=== PATIENT | male | born 1980 | race Caucasian/White ===

== ENCOUNTER 2019-02-16 14:46 | Emergency (ER) | payer MEDICARE, OTHER ==
[~2019-02-16] VITALS: Ht 177.8 cm; Wt 86.2 kg
[2019-02-16] MEDS ORDERED: CHLO10 PO (15:07)
[2019-02-16] MEDS ORDERED: FOLI1 PO (15:07)
[2019-02-16] MEDS ORDERED: CARV6.25 PO (15:07)
[2019-02-16] MEDS ORDERED: Thiamine HCl100 MG PO (15:08)
[2019-02-16] MEDS ORDERED: LOSA25 PO (15:08)
[2019-02-16] MEDS ORDERED: SIMV10 PO (15:08)
[2019-02-16] MEDS ORDERED: THERA1 EACH PO (15:22)
[2019-02-16] MEDS ORDERED: GABA300 PO (15:22)
[2019-02-16 15:29] LABS: BASOPHILS ABSOLUTE AUTO 0.08 K/mm3 (0.00-0.23); BASOPHILS PERCENT AUTO 1 % (0-2); EOSINOPHILS ABSOLUTE AUTO 0.18 K/mm3 (0.00-0.68); EOSINOPHILS PERCENT AUTO 1 % (0-6); Hematocrit 38.4 % (37.0-53.0); Hemoglobin 13.4 g/dL (13.5-17.5); IMMATURE GRAN ABSOLUTE AUTO 0.08 K/mm3 (0.00-0.10); IMMATURE GRAN PERCENT AUTO 1 % (0-1); LYMPHOCYTES ABSOLUTE AUTO 1.76 K/mm3 (0.84-5.20); LYMPHOCYTES PERCENT AUTO 11 % (21-46); MONOCYTES ABSOLUTE AUTO 1.24 K/mm3 (0.16-1.47); MONOCYTES PERCENT AUTO 8 % (4-13); Mean Corpuscular HGB Conc 34.9 g/dL (31.5-36.5); Mean Corpuscular Volume 95 fL (80-100); Mean Platelet Volume 9.3 fL (9.1-12.4); NEUTROPHILS ABSOLUTE AUTO 12.69 K/mm3 (1.96-9.15); NEUTROPHILS PERCENT AUTO 79 % (41-73); Platelet Count 261 K/mm3 (150-400); RDW Coefficient Variation 12.8 % (11.7-14.2); RDW Standard Deviation 44.5 fL (35.1-46.3); Red Blood Cell Count 4.06 M/mm3 (4.30-5.90); White Blood Cell Count 16.03 K/mm3 (4.00-11.30)
[2019-02-16 15:48] LABS: Alanine Aminotransfer (ALT/SGP 37 U/L (12-78); Albumin, Blood 3.9 g/dL (3.4-5.0); Alk Phos 96 U/L (50-136); Anion Gap 7 mmol/L (6-16); Aspartate Aminotrans (AST/SGOT 27 U/L (12-37); Bilirubin, Total 0.8 mg/dL (0.1-1.0); Blood Urea Nitrogen 6 mg/dL (8-24); Bun/Creatinine Ratio 9.8 (12.0-20.0); CO2, Blood 27 mmol/L (21-32); Calcium, Blood 8.9 mg/dL (8.5-10.1); Chloride, Blood 100 mmol/L (98-108); Creatinine, Blood 0.61 mg/dL (0.60-1.20); Globulin, Blood 3.8 g/dL (2.2-4.0); Glomerular Filtration Rate >60 (60-); Glucose, Blood 95 mg/dL (70-99); Potassium, Blood 3.7 mmol/L (3.5-5.5); Sodium, Blood 134 mmol/L (136-145); Total Protein, Blood 7.7 g/dL (6.4-8.2); Troponin I <0.015 ng/mL (0.000-0.040)
[2019-02-16] MEDS ORDERED: CHLO25 PO (17:05)
== END 2019-02-16 17:17 | disposition home or self-care (01) ==
LOC: ER 14:46
PROVIDERS: Physician Assistant
DX: F10.239 Alcohol dependence with withdrawal, unspecified (principal); R07.81 Pleurodynia; Z79.899 Other long term (current) drug therapy; I10 Essential (primary) hypertension
CPT/HCPCS: 71046; 80053; 84484; 85025; 85379; 93005; 93010; 96361; 96374; 99285-25; J2060; J7120

== ENCOUNTER 2024-06-20 17:02 | Emergency (ER) | payer MEDICARE ==
[~2024-06-20] VITALS: Ht 185.4 cm; Wt 95.2 kg
[~2024-06-20 17:02] MED LIST: CARV6.25 PO; CHLO10 PO; CHLO25 PO; FOLI1 PO; GABA300 PO; LOSA25 PO; SIMV10 PO; THERA1 EACH PO; Thiamine HCl100 MG PO
[2024-06-20] MEDS ORDERED: Acetaminophen 500 MG Tab PO ONE (17:50)
[2024-06-20 18:32] LABS: CORONAVIRUS COVID-19 AG Negative (NEGATIVE); INFLUENZA A AG Positive (NEGATIVE); INFLUENZA B AG Negative (NEGATIVE)
[2024-06-20 18:40] VITALS: BP 140/87
[2024-06-20] MEDS ORDERED: Oseltamivir Phosphate 75 MG Cap PO ONE (18:55)
[2024-06-20] MEDS ORDERED: OSEL75CA PO (18:56)
[2024-06-20] MEDS ORDERED: ONDA4ODT MM (18:56)
== END 2024-06-20 19:08 | disposition home or self-care (01) ==
LOC: ER 17:02
PROVIDERS: Student in an Organized Health Care Education/Training Program
DX: J10.1 Influenza due to other identified influenza virus with other respiratory manifestations (principal); I10 Essential (primary) hypertension; E78.5 Hyperlipidemia, unspecified; F17.200 Nicotine dependence, unspecified, uncomplicated; Z79.899 Other long term (current) drug therapy
CPT/HCPCS: 71046; 87428-QW; 93005; 93010; 99285-25; A9270